=== PATIENT | female | born 1985 ===

== ENCOUNTER 2017-12-17 11:49 | Emergency (ER) | payer SELFPAY ==
[2017-12-17 12:07] VITALS: BP 96/61
--- NOTE | 2017-12-17 12:10 | UC ---
Lower Extremity/Ankle HPI - HPI Summary HPI Summary: Pt presents with left thigh pain that started yesterday. She tells me that she has been walking and standing a lot more this week. Denies injury or fall. No back pain, dysuria, weakness, numbness, or radiation of pain. - History of Current Complaint Chief Complaint: UCLowerExtremity Stated Complaint: PAIN IN LEG Time Seen by Provider: 12/17/17 12:08 Hx Last Menstrual Period: 2 weeks ago Onset/Duration: Gradual Onset Severity Initially: Moderate Severity Currently: Moderate Pain Intensity: 6 Pain Scale Used: 0-10 Numeric Aggravating Factor(s): Standing, Ambulation Alleviating Factor(s): Rest Able to Bear Weight: Yes - Allergies/Home Medications Allergies/Adverse Reactions: Allergies Allergy/AdvReac Type Severity Reaction Status Date / Time No Known Allergies Allergy Verified 12/17/17 12:00 Home Medications: Home Medications Ibuprofen 400 mg PO Q6HR PRN 12/17/17 [History Confirmed 12/17/17] Multivitamin [Multivitamins] 1 cap PO DAILY 12/17/17 [History Confirmed 12/17/17 ] PMH/Surg Hx/FS Hx/Imm Hx Previously Healthy: Yes - Surgical History Surgical History: Yes Surgery Procedure, Year, and Place: c section 3 years ago - Family History Known Family History: Positive: Unknown - Social History Lives: With Family Alcohol Use: None Substance Use Type: None Smoking Status (MU): Never Smoked Tobacco Have You Smoked in the Last Year: No - Immunization History Most Recent Influenza Vaccination: 09/07 Most Recent Tetanus Shot: 12/06/14 Most Recent Pneumonia Vaccination: none Review of Systems Constitutional: Negative Skin: Negative Respiratory: Negative Cardiovascular: Negative Genitourinary: Negative Neurovascular: Negative Musculoskeletal: Other: - Left thigh pain Neurological: Negative Psychological: Negative All Other Systems Reviewed And Are Negative: Yes Physical Exam Triage Information Reviewed: Yes Appearance: Well-Appearing, No Pain Distress, Well-Nourished Vital Signs: Initial Vital Signs Temp 99.2 F 12/17/17 11:53 Pulse 63 12/17/17 11:53 Resp 18 12/17/17 11:53 BP 96/61 12/17/17 11:53 Pulse Ox 96 12/17/17 11:53 Vital Signs Reviewed: Yes Neck: Positive: Supple, Nontender, No Lymphadenopathy Respiratory: Positive: Lungs clear, Normal breath sounds, No respiratory distress, No accessory muscle use Cardiovascular: Positive: RRR, No Murmur, Pulses Normal Musculoskeletal: Positive: Strength Intact - B/L LEs, No Edema, ROM Limited @ - Left hip due to pain in left TFL, Other: - TTP over left TFL and distal hamstrings. SOFIE positive for left lateral hip pain. Pain with abduction, adduction, and extension. No obvious bony deformities. Neurological: Positive: Alert, Other: - Sensations intact b/l LEs L3-S1 Psychological: Positive: Age Appropriate Behavior Skin: Negative: rashes, significant lesion(s) Lower Extremity Course/Dx - Course Course Of Treatment: Suspect muscle spasm/strain of left TFL and hamstrings. She took some ibuprofen last night, which did help her pain. IM toradol given today and rx for meloxicam. Apply Ice/Heat to the area and rest. - Differential Dx/Diagnosis Provider Diagnoses: Muscle strain of left TFL. Muscle strain left hamstrings Discharge - Discharge Plan Condition: Stable Disposition: HOME Prescriptions: Meloxicam [Mobic] 7.5 mg PO BID PRN #14 tablet PRN Reason: Pain Patient Education Materials: Hip Bursitis (ED), Hip Pain (ED) Referrals: Imani Cordero MD [Primary Care Provider] - Additional Instructions: If you develop a fever, shortness of breath, chest pain, new or worsening symptoms - please call your PCP or go to the ED. 1) Rest and apply heat to the area for the next 24-48 hours 2) Please do not take ibuprofen in addition to the Meloxicam as these medications are similar and may interact.
[2017-12-17] MEDS ORDERED: Ketorolac INJ* 30 MG/ML 1 ML VIAL IM ONE (12:24)
== END 2017-12-17 13:03 | disposition home or self-care (01) ==
LOC: UCEAST 11:49
DX: S76.312A Strain of muscle, fascia and tendon of the posterior muscle group at thigh level, left thigh, initial encounter (principal); X50.9XXA Other and unspecified overexertion or strenuous movements or postures, initial encounter; Y93.9 Activity, unspecified; Y92.9 Unspecified place or not applicable
CPT/HCPCS: 96372; 99212; G0463; J1885